=== PATIENT | male | born 1985 | race Hispanic/Latino ===

== ENCOUNTER 2020-01-31 00:27 | Emergency (ER) | payer OTHER ==
[2020-01-31] MEDS ORDERED: KETOROLAC TROMETHAMINE 60 MG/2 ML VIAL ONE (00:53)
== END 2020-01-31 01:48 ==
LOC: EDH 00:27
DX: M25.562 Pain in left knee (principal); Z72.0 Tobacco use
CPT/HCPCS: 29505; 73562; 96372; 99283; J1885